=== PATIENT | male | born 1970 | race Caucasian/White ===

== ENCOUNTER 2020-07-24 09:12 | Emergency (ER) | payer OTHER ==
--- NOTE | 2020-07-24 09:53 | EDM.PDOC ---
ED HPI GENERAL MEDICAL PROBLEM - General Chief Complaint: Back Pain or Injury Stated Complaint: BACK PAIN Time Seen by Provider: 07/24/20 09:34 Source of Information: Reports: Patient History Limitations: Reports: No Limitations, Other (ED vital signs reveal a temp of 97.5, pulse of 92, respiratory rate of 19, blood pressure 175/92, pulse ox 98 percent on room air.) - History of Present Illness INITIAL COMMENTS - FREE TEXT/NARRATIVE: 49-year-old male presents to the emergency department with complaints of a painful, which he thinks is a mole, on the right thoracic area just lateral to his spine. He states about 4 days ago he developed pain in his back and he reached back and he felt what he thought was a mole and began picking at it. He states that over the past 4 days it has become more painful and he has continued attempting to pick at the area. Last night he did developed fever, chills, nausea, no vomiting but has diarrhea. He states he has taken Tylenol and ibuprofen initially which did not help. He had some diclofenac and hydrocodone leftover from a previous prescription and he has taken these over the course of the last couple of days and he states these have helped. The patient is from [facility] and his primary physician is located there. He has a history of hypertension for which she takes hydrochlorothiazide. back Pain Score (Numeric/FACES): 9 - Related Data Allergies Allergy/AdvReac Type Severity Reaction Status Date / Time codeine Allergy Hallucinati Verified 07/24/20 09:35 ons Home Meds: Home Meds cephALEXin [Keflex] 500 mg PO QID #40 cap 07/24/20 [Rx] Past Medical History Cardiovascular History: Reports: Hypertension Social & Family History - Tobacco Use Tobacco Use Status *Q: Former Tobacco User Used Tobacco, but Quit: Yes Month/Year Tobacco Last Used: 2010 - Recreational Drug Use Recreational Drug Use: No ED ROS GENERAL - Review of Systems Review Of Systems: Comprehensive ROS is negative, except as noted in HPI. ED EXAM, SKIN/RASH Exam: See Below Exam Limited By: No Limitations General Appearance: Alert, WD/WN, Mild Distress Ears: Normal External Exam, Hearing Grossly Normal Nose: Normal Inspection Throat/Mouth: Normal Inspection, Normal Lips, Normal Voice, No Airway Compromise Head: Atraumatic Neck: Normal Inspection, Supple Respiratory/Chest: No Respiratory Distress, Lungs Clear, Normal Breath Sounds, No Accessory Muscle Use, Chest Non-Tender Cardiovascular: Normal Peripheral Pulses, Regular Rate, Rhythm, No Edema, No Murmur Peripheral Pulses: 2+: Radial (L), Radial (R) GI/Abdominal: No Distention (Male) Exam: Deferred Rectal (Males) Exam: Deferred Back Exam: Full Range of Motion, Other (Scabbed area noted to the right thoracic area just lateral to the spine. Erythema noted around the scabbed area. Patient also states tenderness is noted to the scab and area of erythema.) Extremities: Normal Inspection Neurological: Alert, Oriented, Normal Cognition Psychiatric: Normal Affect, Normal Mood Skin: Warm, Dry, Intact, Wound/Incision (Scabbed, ulcerative area that is pea- sized noted to right thoracic area just lateral to the spine.). No: Normal Color Location, Skin: Back Characteristics: Erythematous Associated features: Warmth, Tenderness Lymphatic: No Adenopathy Course - Vital Signs Text/Narrative:: Patient presents with painful, mole to his right lower thoracic area just lateral to the spine. Upon assessment, patient has what appears to be a scabbed ulcerated area about the size of a pea. There is surrounding erythema approximately 3 cm in diameter. Area is tender to palpation with majority of discomfort located at the scabbed ulcer area. Because he developed fever and chills, nausea, and diarrhea last evening I have elected to do a CBC, CMP and C- reactive protein. Of note, there is no drainage noted to the area to obtain a culture. He denies any history of previous staph infection. Last Recorded V/S: Last Vital Signs Temp 97.5 F 07/24/20 09:31 Pulse 92 07/24/20 09:31 Resp 19 07/24/20 09:31 BP 175/92 H 07/24/20 09:31 Pulse Ox 98 07/24/20 09:31 - Orders/Labs/Meds Labs: Laboratory Tests 07/24/20 07/24/20 Range/Units 10:01 10:01 WBC 13.12 H (4.23-9.07) K/mm3 RBC 5.21 (4.63-6.08) M/mm3 Hgb 15.9 (13.7-17.5) gm/dl Hct 46.0 (40.1-51.0) % MCV 88.3 (79.0-92.2) fl MCH 30.5 (25.7-32.2) pg MCHC 34.6 (32.2-35.5) g/dl RDW Std Deviation 41.4 (35.1-43.9) fL Plt Count 207 (163-337) K/mm3 MPV 10.7 (9.4-12.3) fl Neut % (Auto) 83.9 H (34.0-67.9) % Lymph % (Auto) 7.9 L (21.8-53.1) % Hemphill % (Auto) 7.5 (5.3-12.2) % Eos % (Auto) 0.3 L (0.8-7.0) Baso % (Auto) 0.2 (0.1-1.2) % Neut # (Auto) 11.00 H (1.78-5.38) K/mm3 Lymph # (Auto) 1.03 L (1.32-3.57) K/mm3 Hemphill # (Auto) 0.99 H (0.30-0.82) K/mm3 Eos # (Auto) 0.04 (0.04-0.54) K/mm3 Baso # (Auto) 0.03 (0.01-0.08) K/mm3 Manual Slide Review Normal smear Sodium 142 (136-145) mEq/L Potassium 3.8 (3.5-5.1) mEq/L Chloride 102 (98-107) mEq/L Carbon Dioxide 28 (21-32) mEq/L Anion Gap 15.8 H (5-15) BUN 16 (7-18) mg/dL Creatinine 1.2 (0.7-1.3) mg/dL Est Cr Clr Drug Dosing 82.63 mL/min Estimated GFR (MDRD) > 60 (>60) mL/min BUN/Creatinine Ratio 13.3 L (14-18) Glucose 131 H (70-99) mg/dL Calcium 9.4 (8.5-10.1) mg/dL Total Bilirubin 0.6 (0.2-1.0) mg/dL AST 28 (15-37) U/L ALT 59 (16-63) U/L Alkaline Phosphatase 64 (46-116) U/L C-Reactive Protein 0.2 (<1.0) mg/dL Total Protein 8.1 (6.4-8.2) g/dl Albumin 4.6 (3.4-5.0) g/dl Globulin 3.5 gm/dL Albumin/Globulin Ratio 1.3 (1-2) Meds: Medications Discontinued Medications Generic Name Dose Route Start Last Admin Trade Name Corine PRN Reason Stop Dose Admin Ceftriaxone Sodium 1 gm/ 0 gm 07/24/20 11:38 Lidocaine HCl 2.1 ml IM 07/24/20 11:39 ONETIME ONE - Re-Assessments/Exams Free Text/Narrative Re-Assessment/Exam: 07/24/20 11:48 Hematology reveals a WBC of 13.12, hemoglobin 15.9, hematocrit 46.0, neutrophil percentage 83.9, lymphocyte percentage 7.9, sodium is 142, potassium 3.8, carbon dioxide 28, anion gap 15.8, BUN 16, creatinine 1.2, glucose 131, C-reactive protein 0.2. It appears the patient does have cellulitis. I have ordered for him to receive a dose of IM Rocephin. Patient will be sent home with a prescription for Keflex 4 times daily for 10 days. He will need to follow-up with his primary care provider in about 1 week. Departure - Departure Time of Disposition: 11:42 Disposition: Home, Self-Care 01 Condition: Good Clinical Impression: Cellulitis Qualifiers: Site of cellulitis: other site Qualified Code(s): L03.818 - Cellulitis of other sites - Discharge Information *PRESCRIPTION DRUG MONITORING PROGRAM REVIEWED*: Not Applicable *COPY OF PRESCRIPTION DRUG MONITORING REPORT IN PATIENT PINA: Not Applicable Prescriptions: cephALEXin [Keflex] 500 mg PO QID #40 cap Instructions: Cellulitis, Adult, [id number] Referrals: PCP,Not In Area [Primary Care Provider] - Forms: ED Department Discharge Additional Instructions: You were seen in the emergency department today with complaints of pain in your back, specifically at the site of what you thought was a mole. You stated that he developed this pain a few days ago and started picking at it and the pain is progressively worsened. There was redness noted around the area but the area is scabbed and there is no drainage. Lab work was completed and your white blood cell count was slightly elevated. You were given a dose of antibiotics while in the emergency department. I have sent a prescription for an antibiotic to your pharmacy. This medication is called Keflex. You will need to take 1 tab with each meal and then at bedtime. Be sure to take this medication until its gone. Also keep in mind that it may take 48 to 72 hours before you notice the antibiotics working. You may take Tylenol 650 mg alternating with ibuprofen 600 mg every 4 hours for the next 48 hours. This should help to decrease the pain and inflammation. Recommend that you have a recheck with your primary care provider in about 1 week to be sure the infection is clearing up. Should your condition worsen or change, do not hesitate returning to the emergency department. Sepsis Event Note (ED) - Evaluation Sepsis Screening Result: No Definite Risk - Focused Exam Vital Signs: Vital Signs Temp Pulse Resp BP Pulse Ox 07/24/20 09:31 97.5 F 92 19 175/92 H 98
[2020-07-24] MEDS ORDERED: cefTRIAXone 1 GM, Lidocaine 1% 2.1 ML IM ONE ×2 (11:38)
== END 2020-07-24 12:03 | disposition home or self-care (01) ==
LOC: JD.ED 09:12
DX: L03.818 Cellulitis of other sites (principal); I10 Essential (primary) hypertension; Z88.5 Allergy status to narcotic agent; Z87.891 Personal history of nicotine dependence
CPT/HCPCS: 36415; 80053; 85025; 86140; 96372; 99283; J0696